=== PATIENT | female | born 1975 | race Caucasian/White ===

== ENCOUNTER 2016-09-17 22:02 | Outpatient (CLI) | payer MEDICAID ==
[~2016-09-17] VITALS: Ht 152.4 cm; Wt 62.4 kg
[2016-09-17 22:24] VITALS: Ht 152.4 cm; Wt 62.4 kg
[2016-09-17 22:25] VITALS: BP 110/62; PULSE 80; RESP 18
[2016-09-17] MEDS ORDERED: PREN-93 PO (22:26)
--- NOTE | 2016-09-17 22:53 | PN ---
Triage Information Date/Time Weeks of Gestation 36 weeks and 6 days : 3 Para: 1 Diabetes: none Hypertention: none Objective Vital Signs Date Time Temp Pulse Resp B/P Pulse Ox O2 Delivery O2 Flow Rate FiO2 09/17/16 22:25 98.0 80 18 110/62 Room Air Heart Rate: 130's Heart Rate Comments Category I Contractions: None Assessment/Plan Decreased movement BPP to be done. JULIEN ROBLES MD Sep 17, 2016 22:53
[2016-09-17 23:57] LABS: ADD UMIC NO; UR ASCORBIC ACID NEGATIVE (NEGATIVE); UR BILIRUBIN (Dip) NEGATIVE (NEGATIVE); UR BLOOD (Dip) NEGATIVE (NEGATIVE); UR CLARITY CLEAR (CLEAR); UR COLOR STRAW (YELLOW); UR GLUCOSE (Dip) NEGATIVE (NEGATIVE); UR KETONES (Dip) NEGATIVE (NEGATIVE); UR LEUKOCYTE ESTERASE (Dip) NEGATIVE Leu/ul (NEGATIVE); UR NITRITE (Dip) NEGATIVE (NEGATIVE); UR SPECIFIC GRAVITY (Dip) 1.004 (1.003-1.030); UR TOTAL PROTEIN (Dip) NEGATIVE (NEGATIVE); UR UROBILINOGEN (Dip) NEGATIVE (NEGATIVE)
--- NOTE | 2016-09-18 00:31 | RADRPT ---
PROCEDURE: ULTRASOUND BIOPHYSICAL PROFILE CLINICAL INDICATION: 41-year-old female with contractions for viability. TECHNIQUE: Multiple sonographic images were obtained in order to perform a biophysical profile The images were reviewed on a PACS workstation. COMPARISON: None. FINDINGS: There is a single viable intrauterine gestation. There is a vertex presentation. Cardiac activity i s present at 159 beats per minute. The placenta is posterior. The results of the biophysical profil e are as follows: breathing movement = 2/2 Gross body movement = 2/2 tone = 2/2 Qualitative amniotic fluid volume = 2/2 Amniotic fluid index equals 9.8 cm. This yields a biophysical profile score of 8/8. IMPRESSION: Biophysical profile score is 8/8. .Dhiraj Pichardo MD, Date Time Electronically viewed and signed by .Dhiraj Pichardo MD, on 09/18/2016 00:31 .M/
--- NOTE | 2016-09-18 02:23 | TRIAGE ---
OB Triage Datetime Report Generated by CPN: 09/18/2016 02:23 Datetime: 09/18/2016 00:54 Labor Evaluation Frequency: 0 Monitor Mode: External Heart Rate FHR Baseline Rate: 135 Monitor Mode: External US FHR Baseline Changes: No Baseline Change Variability: Moderate 6-25 bpm Accelerations: 15X15 Decelerations: None Category: Category I Datetime: 09/17/2016 23:44 Labor Evaluation Frequency: IRREGULAR Monitor Mode: External Duration (sec)2399: 120 Quality: Mild Pattern: Normal: <= 5 Contractions in 10 Minutes Resting Tone [place]: Relaxed Heart Rate FHR Baseline Rate: 135 Monitor Mode: External US FHR Baseline Changes: No Baseline Change Variability: Moderate 6-25 bpm Accelerations: 15X15 Decelerations: None Category: Category I Datetime: 09/17/2016 23:00 Labor Evaluation Frequency: IRREGULAR Monitor Mode: External Duration (sec)2399: 60-70 Quality: Mild Pattern: Normal: <= 5 Contractions in 10 Minutes Resting Tone [place]: Relaxed Heart Rate FHR Baseline Rate: 145 Monitor Mode: External US FHR Baseline Changes: No Baseline Change Variability: Moderate 6-25 bpm Accelerations: 15X15 Decelerations: None Category: Category I Datetime: 09/17/2016 22:34 EGA: 36.6 Datetime: 09/17/2016 22:14 Stage of : OB Triage Time of Arrival: 09/17/2016 21:50 Arrived By: Wheelchair Arrived From: Home Chief Complaint: CONTRACTIONS/ DFM Movement: Present Rupture of Membranes: Denies Vaginal Bleeding: None Vaginal Discharge: Denies Recent Sexual Intercouse: Denies Abdominal Trauma: Not Applicable Patient Complaints: None Time Provider Notified: 09/17/2016 21:50 Provider Notified: DR ROBLES Initial Plan: CALL CAMMY LUNA Maternal Assessment Level of Consciousness: Fully Conscious DTR's/Clonus: DTRs 2+; No Clonus Headache: Denies Blurred Vision: No Respiratory Effort: Unlabored; Regular Rhythm; Equal Expansion Breath Sounds, Left: Clear and Equal Breath Sounds, Right: Clear and Equal Nausea/Vomiting: Denies RUQ Epigastric Pain: Denies Lower Extremities Edema: None Degree: None Upper Extremities Edema: None Degree: None Facial Edema: None Temperature Route: Oral Fall Risk Assessment History of Falling: (0) No Secondary Diagnosis: (0) No Ambulatory Aid: (0) Bedrest/Nurse Assist IV Therapy: (0) No Gait: (0) Normal/Bedrest/Immobile Mental Status: (0) Oriented to Own Ability Fall Score: 0 Fall Risk Score Definition: No Risk: No action required Monitor Mode: External Monitor Mode: External US Pain Assessment Pain Scale: 6 Pain Presence: Intermittent Pain Type: Contraction Pain Location: Abdomen; Back
== END 2016-09-18 01:10 | disposition home or self-care (01) ==
LOC: OBT 22:02 → L-D 22:05 → OBT 09-18 01:10
PROVIDERS: ATTEND Obstetrics & Gynecology
DX: O36.8130 Decreased fetal movements, third trimester, not applicable or unspecified (principal); Z3A.36 36 weeks gestation of pregnancy
CPT/HCPCS: 76818; 81003; 87086; Z7500; G0463

== ENCOUNTER 2016-09-25 15:15 | Inpatient (IN) | payer MEDICAID ==
[~2016-09-25] VITALS: Ht 144.8 cm; Wt 61.9 kg
[~2016-09-25 15:15] MED LIST: PREN-93 PO
[2016-09-25] MEDS ORDERED: METHYLERGONOVINE 0.2 MG INJ IM PRN ×2 (16:00)
[2016-09-25] MEDS ORDERED: CARBOPROST 250 MCG INJ IM PRN ×2 (16:00)
[2016-09-25] MEDS ORDERED: OXYTOCIN 30 UNITS/LR 500 ML IV PRN ×2 (16:00)
[2016-09-25] MEDS ORDERED: MISOPROSTOL 200 MCG TAB PR PRN ×2 (16:00)
[2016-09-25 16:05] VITALS: BP 118/58; Ht 144.8 cm; Wt 61.9 kg
[2016-09-25 16:08] LABS: BASOPHILS % 0.3 % (0.0-2.0); EOSINOPHILS # 0.1 10^3/ul (0.0-0.5); HEMATOCRIT 38.4 % (37.0-47.0); HEMOGLOBIN 14.1 g/dl (12.0-16.0); LYMPHOCYTES # 1.7 10^3/ul (0.8-2.9); LYMPHOCYTES % 24.6 % (15.0-51.0); MEAN CORPUSCULAR HEMOGLOBIN 33.6 pg (29.0-33.0); MEAN CORPUSCULAR HGB CONC 36.7 g/dl (32.0-37.0); MEAN CORPUSCULAR VOLUME 91.4 fl (82.0-101.0); MEAN PLATELET VOLUME 10.2 fl (7.4-10.4); MONOCYTE # 0.4 10^3/ul (0.3-0.9); MONOCYTES % 6.1 % (0.0-11.0); NEUTROPHIL # 4.6 10^3/ul (1.6-7.5); NEUTROPHILS % 67.4 % (39.0-77.0); PLATELET COUNT 202 10^3/UL (140-415); RED CELL DISTRIBUTION WIDTH 12.7 % (11.5-14.5); WHITE BLOOD COUNT 6.8 10^3/ul (4.8-10.8)
[2016-09-25] MEDS: LACTATED RINGER'S 1,000 ML IV SCH ×2 (16:09→21:17)
[2016-09-25 16:25] LABS: INR 0.87; PROTIME 11.8 Sec (12.2-14.2); PT RATIO 0.9
[2016-09-25 16:26] LABS: PARTIAL THROMBOPLASTIN TIME 26.5 Sec (25.0-35.0)
[2016-09-25] MEDS ORDERED: CEFAZOLIN 2 GM/50 ML (PMX) 50 ML IV SCH (16:30)
--- NOTE | 2016-09-25 21:39 | HP ---
Date/Time of Note Date/Time of Note DATE: 09/25/16 TIME: 21:37 OB - History Hx of Present Chief Complaint: scheduled Estimated Due Date: Oct 02, 2016 : 3 Para: 1 Spontaneous : 0 Therapeutic : 1 Care: Good Care Ultrasounds: Normal mid trimester US Obstetrical Complications: None Medical Complications: None Past Family/Social History * Past Medical, Surgical, Family and Obstetric Histories reviewed from chart. GBS Status: Negative OB Admission Exam Vital Signs Vital Signs Vital Signs Date Time Temp Pulse Resp B/P Pulse Ox O2 Delivery O2 Flow Rate FiO2 09/25/16 16:05 98.6 118/58 Physical Exam HEENT: WNL Heart: Rhythm Normal Lungs: Clear, Equal Abdomen: WNL Extremities: Normal Reflexes: Normal Heart Rate: 130's Accelerations: Accelerations Present Decelerations: No Decelerations Varibility: Moderate Last 72 hours Lab Results CBC & BMP 09/25/16 15:55 OB Assessment/Plan Reason for admission: section Plan: Section JULIEN ROBLES MD Sep 25, 2016 21:39
[2016-09-25] MEDS ORDERED: ONDANSETRON 4 MG INJ ONE (22:13)
[2016-09-25] MEDS ORDERED: METOCLOPRAMIDE 10 MG INJ ONE (22:13)
[2016-09-25] MEDS ORDERED: EPHEDrine SULFATE 50 MG/5 ML SYG ONE (22:13)
[2016-09-25] MEDS ORDERED: OXYTOCIN 30 UNITS/LR 500 ML IV ONE (22:13)
[2016-09-25] MEDS ORDERED: morphine SULFATE/PF (10 MG/10 ML) INJ ONE (22:13)
[2016-09-25] MEDS ORDERED: OXYTOCIN 10 UNIT INJ ONE (22:13)
[2016-09-25] MEDS ORDERED: morphine SULFATE/PF (10 MG/10 ML) INJ SPINAL ONE (23:30)
[2016-09-25] MEDS ORDERED: KETOROLAC 30 MG INJ IV PRN (23:30)
[2016-09-25] MEDS ORDERED: NALOXONE (0.4 MG/ML) INJ IV PRN (23:30)
[2016-09-25] MEDS ORDERED: DIPHENHYDRAMINE 50 MG INJ IV PRN (23:30)
[2016-09-25] MEDS ORDERED: EPHEDrine SULFATE 50 MG/5 ML SYG IV PRN (23:30)
[2016-09-25] MEDS ORDERED: morphine 2 MG INJ IV PRN ×2 (23:30)
[2016-09-26] VITALS (11 sets, daily range): BP systolic 103–129; BP diastolic 57–69; PULSE 70–85; RESP 16–20
[2016-09-26] MEDS: LACTATED RINGER'S 1,000 ML IV SCH ×3 (02:27→18:27)
[2016-09-26] MEDS: OXYTOCIN 30 UNITS/LR 500 ML IV SCH ×8 (02:27→22:27)
[2016-09-26] MEDS ORDERED: METHYLERGONOVINE 0.2 MG INJ IM PRN (02:30)
[2016-09-26] MEDS ORDERED: CARBOPROST 250 MCG INJ IM PRN (02:30)
[2016-09-26] MEDS ORDERED: MISOPROSTOL 200 MCG TAB PR PRN (02:30)
[2016-09-26] MEDS ORDERED: LANOLIN 7 GM TUBE TOP PRN (02:30)
[2016-09-26] MEDS ORDERED: OXYTOCIN 30 UNITS/LR 500 ML IV PRN (02:30)
[2016-09-26] MEDS: ONDANSETRON 4 MG INJ IV PRN ×2 (04:29→10:28)
[2016-09-26 07:08] LABS: BASOPHILS % 0.2 % (0.0-2.0); HEMATOCRIT 40.9 % (37.0-47.0); HEMOGLOBIN 14.8 g/dl (12.0-16.0); LYMPHOCYTES # 0.8 10^3/ul (0.8-2.9); LYMPHOCYTES % 6.1 % (15.0-51.0); MEAN CORPUSCULAR HEMOGLOBIN 33.3 pg (29.0-33.0); MEAN CORPUSCULAR HGB CONC 36.2 g/dl (32.0-37.0); MEAN CORPUSCULAR VOLUME 92.1 fl (82.0-101.0); MEAN PLATELET VOLUME 10.2 fl (7.4-10.4); MONOCYTE # 0.6 10^3/ul (0.3-0.9); MONOCYTES % 4.2 % (0.0-11.0); NEUTROPHIL # 11.6 10^3/ul (1.6-7.5); PLATELET COUNT 192 10^3/UL (140-415); RED BLOOD COUNT 4.44 10^6/ul (4.20-5.40); RED CELL DISTRIBUTION WIDTH 12.3 % (11.5-14.5); WHITE BLOOD COUNT 13.1 10^3/ul (4.8-10.8)
[2016-09-26] MEDS: SENNA/DOCUSATE NA (8.6MG/50MG) TAB PO SCH ×2 (09:00→20:32)
--- NOTE | 2016-09-26 19:17 | QN ---
Documentation Comment No complaint Afebrile VSS Abdomen soft ND POD #1 Stable Ambulate Advance diet. JULIEN ROBLES MD Sep 26, 2016 19:17
[2016-09-26] MEDS ORDERED: OXYCODONE/ACETAMINOPHEN (5/325) TAB PO PRN (23:30)
[2016-09-27] MEDS: OXYTOCIN 30 UNITS/LR 500 ML IV SCH ×6 (02:27→21:46)
[2016-09-27] MEDS: LACTATED RINGER'S 1,000 ML IV SCH ×3 (02:27→18:27)
[2016-09-27 04:00] VITALS: BP 113/69; PULSE 75; RESP 18
[2016-09-27] MEDS: IBUPROFEN 800 MG TAB PO SCH ×3 (05:35→21:46)
[2016-09-27 08:25] VITALS: BP 100/53; PULSE 76; RESP 16
[2016-09-27] MEDS: SENNA/DOCUSATE NA (8.6MG/50MG) TAB PO SCH ×2 (10:13→21:46)
--- NOTE | 2016-09-27 14:31 | QN ---
Documentation Comment Progress Note POD #2 Pt feels well with good pain management. + flatus. No BM. + but doesn't have much milk yet. T=97.3 BP 100/53 Fundus firm and at the umbilicus. Incision is clean, dry and intact with lisha present. Lochia is minimal. Ext 1+ edema. WBC 13.1 Hgb 14.8 Plts 192K P: Continue care. Plan D/C tomorrow. LUIS MIGUEL TALAVERA MD Sep 27, 2016 14:31
[2016-09-27 16:00] VITALS: BP 97/55; PULSE 70; RESP 19
[2016-09-27] MEDS: OXYCODONE/ACETAMINOPHEN (5/325) TAB PO PRN (17:06)
[2016-09-27 20:00] VITALS: BP 94/61; PULSE 85; RESP 18
[2016-09-28] MEDS: OXYTOCIN 30 UNITS/LR 500 ML IV SCH ×2 (02:16→06:22)
[2016-09-28] MEDS: LACTATED RINGER'S 1,000 ML IV SCH (02:27)
[2016-09-28 04:00] VITALS: BP 105/58; PULSE 72; RESP 17
[2016-09-28] MEDS: IBUPROFEN 800 MG TAB PO SCH ×2 (05:33→13:15)
[2016-09-28 08:20] VITALS: BP 117/62; PULSE 67; RESP 17
[2016-09-28] MEDS ORDERED: DIPHTH/TET/ACEL PERTUSS (ADULT) 0.5 ML VIAL IM* ONE (09:00)
[2016-09-28] MEDS: OXYCODONE/ACETAMINOPHEN (5/325) TAB PO PRN ×2 (09:03→18:09)
[2016-09-28] MEDS: SENNA/DOCUSATE NA (8.6MG/50MG) TAB PO SCH (09:03)
[2016-09-28 15:10] VITALS: BP 105/55; PULSE 72; RESP 18
[2016-09-28 20:00] VITALS: BP 126/67; PULSE 73; RESP 18
[2016-09-28] MEDS ORDERED: IBUP800T25 PO (20:35)
--- NOTE | 2016-09-28 20:36 | DS ---
Date/Time of Note Date/Time of Note DATE: 09/28/16 TIME: 20:36 Obstetrical Discharge Record Final Diagnosis Final Diagnosis: Term delivered Section Section: Repeat Condition on Discharge Physical Assessment Voiding: Yes Bowel Movement: Yes Breast: Soft, non-tender Fundus: Firm Abdomen and Incision: Incision intact Calf Tenderness: No Patient Condition: Stable JULIEN ROBLES MD Sep 28, 2016 20:36
--- NOTE | 2016-10-01 11:50 | OPR ---
DATE OF OPERATION: 09/25/2016 PREOPERATIVE DIAGNOSIS: at 39 weeks with previous section. POSTOPERATIVE DIAGNOSIS: at 39 weeks with previous section. OPERATION: Repeat low transverse section. SURGEON: Herminio Leung MD. RED CAP: Hayder Bedolla MD. ANESTHESIA: Spinal. ANESTHESIOLOGIST: Temo. OPERATIVE PROCEDURE: The patient was taken to the operating room and placed on the operating table. After successful spinal anesthesia she was given, the patient was placed in supine position. The area was prepared and draped in the usual sterile fashion. Spinal anesthesia was assessed and was satisfactory. Using scalpel, a Pfannenstiel incision was made 2 fingerbreadths above the symphysis pubis. The incision was carried down to the fascia. The fascia was incised transversely with the scissors. Two Liza's were used to separate the fascia from the muscle. The muscle was dissected down to peritoneum. The peritoneum was [____] and incised with Metzenbaum scissors. Using a scalpel, a small transverse incision was made on the lower segment to supplement entry in uterine cavity. Attention was directed to extend the incision bilaterally. The baby was delivered from cephalic position after suction of clear amnionic fluids. The baby was handed off to the team in attendance. Apgars were 8 and 9. The placenta was delivered without difficulty. The uterus was closed with number 1 Monocryl continuous locked fashion. Hemostasis, both ovaries and tubes. The cavity was irrigated with warm saline. The peritoneum was closed with 2-0 Vicryl continuous suture. Fascia was closed with number 1 Vicryl continuous in 2 segments. The skin was closed with lisha. ESTIMATED BLOOD LOSS: Six hundred mL. COMPLICATIONS: None. COUNTS: All counts were correct. Dictated By: Herminio Leung MD /magaly/eric /Document#: [id number]
== END 2016-09-28 22:15 | disposition home or self-care (01) | DRG 766 ==
LOC: L-D 15:15 → PP1 09-26 02:17
PROVIDERS: ADMIT Obstetrics & Gynecology; ATTEND Obstetrics & Gynecology
PROC: 10D00Z1 Extraction of Products of Conception, Low, Open Approach (ICD-10-PCS; principal; 2016-09-25 17:00)
DX: O34.211 Maternal care for low transverse scar from previous cesarean delivery (principal); Z37.0 Single live birth; Z3A.39 39 weeks gestation of pregnancy
CPT/HCPCS: 85025; 85610; 85730; 86592; 86850; 86900; 86901; 90715; 94760; 99464; J0690; J1885; J2210; J2274; J2405; J2590; J2765; J7120